=== PATIENT | male | born 1950 | race Caucasian/White ===

== ENCOUNTER 2019-08-14 00:58 | Day surgery (SDC) | payer MEDICARE, SELFPAY ==
[2019-08-11 13:01] VITALS: BMI 25.4
[2019-08-14 09:57] VITALS: BP 124/85; PULSE 86; RESP 20; TEMP 36.7; O2SAT 96
[2019-08-14] MEDS: LACTATED RINGERS 1,000 ML 150 ML IV CONT (10:12)
--- NOTE | 2019-08-14 10:19 | WPDANESEPPF ---
Anes - Initial Pre Proc Eval Procedure: Operation Date: 08/14/19 11:00 Proposed Procedures p Screening Colonoscopy - Igor Campbell MD Date/Time: 08/14/19 10:19 Surgeon: Igor Campbell MD Pre Op Diagnosis: pers hx colon CA Patient Data Age: 69 Gender: M Height: 6 ft 2 in Weight: 88.7 kg Last Vital Signs Temp 36.7 C 08/14/19 09:57 Pulse 86 08/14/19 09:57 Resp 20 08/14/19 09:57 BP 124/85 08/14/19 09:57 Pulse Ox 96 08/14/19 09:57 Allergies Allergy/AdvReac Type Severity Reaction Status Date / Time No Known Allergies Allergy Unverified 08/14/19 09:56 Home Medications Medication Instructions Recorded Confirmed Type atorvastatin 40 mg PO DAILY 08/11/19 08/14/19 History dabigatran etexilate [Pradaxa] 150 mg PO DAILY 08/11/19 08/14/19 History furosemide 40 mg PO DAILY 08/11/19 08/14/19 History lisinopril 10 mg PO DAILY 08/11/19 08/14/19 History metoprolol succinate 100 mg PO DAILY 08/11/19 08/14/19 History potassium chloride 20 meq PO DAILY 08/11/19 08/14/19 History spironolactone 25 mg PO DAILY 08/11/19 08/14/19 History Patient hx anesthesia problems: none Family hx anesthesia problems: none PMFSH Past Medical History Medical History (Updated 08/14/19 @ 10:19 by Fer Rodriguez MD) Colon cancer HTN (hypertension) Hyperlipidemia Anes - Eval Final PreProcedure Day of Procedure 08/14/19 10:19 Patient weight: normal Heart: regular rate and rhythm Lungs: clear to auscultation Airway: Mallampati scale class 1 and class II Neurological: alert and oriented Last oral intake: >/= 8 hours ASA classification: III Emergent: no Anesthetic plan: proceed Anesthesia type and monitoring: general GIVS Informed Consent: The patient's anesthetic plan and its attendant risks and benefits were discussed with the patient/family/POA. Questions were solicited and answers provided to the satisfaction of the patient/family/POA.
--- NOTE | 2019-08-14 10:34 | PM.HPGS ---
History of Present Illness History of Present Illness Consent: Risks, benefits, and alternatives have been discussed and questions answered. Patient agrees to proceed with procedure. Chief complaint: pers hx colon CA Narrative: Satya Rosa is a 69 year old male with history of colon cancer [facility] Past Medical History Medical History Colon cancer HTN (hypertension) Hyperlipidemia Meds Home Medications and Allergies Home Medications Medication Instructions Recorded Confirmed Type atorvastatin 40 mg PO DAILY 08/11/19 08/14/19 History dabigatran etexilate [Pradaxa] 150 mg PO DAILY 08/11/19 08/14/19 History furosemide 40 mg PO DAILY 08/11/19 08/14/19 History lisinopril 10 mg PO DAILY 08/11/19 08/14/19 History metoprolol succinate 100 mg PO DAILY 08/11/19 08/14/19 History potassium chloride 20 meq PO DAILY 08/11/19 08/14/19 History spironolactone 25 mg PO DAILY 08/11/19 08/14/19 History Allergies Allergy/AdvReac Type Severity Reaction Status Date / Time No Known Allergies Allergy Unverified 08/14/19 09:56 Vital Signs Vital Signs - 24 hr 08/14/19 09:57 Temperature 36.7 C Pulse Rate 86 Respiratory Rate 20 Blood Pressure 124/85 Pulse Oximetry 96 Exam Resp: Auscultation: clear to auscultation bilaterally Cardio: Rate: regular rate Rhythm: regular rhythm GI: GI Palp: Yes Soft to palpation and No Tenderness to palpation present (GI) Assessment and Plan Assessment and plan (1) History of colon cancer: Code(s): Z85.038 - Personal history of other malignant neoplasm of large intestine Status: Acute Assessment and Plan: Colonoscopy with possible biopsy or polypectomy or cautery or injection of substances.
[2019-08-14 11:18] VITALS: BP 94/55; PULSE 74; RESP 20; O2SAT 98
[2019-08-14 11:28] VITALS: BP 92/52; PULSE 76; RESP 20; O2SAT 99
[2019-08-14 11:38] VITALS: BP 98/54; PULSE 83; RESP 20; O2SAT 96
== END 2019-08-14 11:54 | disposition home or self-care (01) ==
PROVIDERS: PCP Internal Medicine; Visit Provider Internal Medicine Gastroenterology
PROC: 0DJD8ZZ Inspection of Lower Intestinal Tract, Via Natural or Artificial Opening Endoscopic (ICD-10-PCS; CPT 45378; principal; 2019-08-14 11:00)
DX: Z12.11 Encounter for screening for malignant neoplasm of colon (principal); Z85.038 Personal history of other malignant neoplasm of large intestine; Z98.0 Intestinal bypass and anastomosis status; Z90.49 Acquired absence of other specified parts of digestive tract; I10 Essential (primary) hypertension; E78.5 Hyperlipidemia, unspecified; Z79.01 Long term (current) use of anticoagulants
CPT/HCPCS: G0105; J2704; J7120

== ENCOUNTER 2020-10-06 09:59 | Outpatient (CLI) | payer MEDICARE, SELFPAY ==
--- NOTE | ~2020-10-06 | PE_ITS ---
EXAMINATION: PET skull to mid thigh DATE: 10/06/2020 11:46 INDICATION: Multiple lung nodules. TECHNIQUE: Blood glucose level was 102 mg/dL. 12.175 mCi of 18-fluorodeoxyglucose (18-FDG) was admini stered i.v. Low dose computed tomography (CT) images were acquired from the base of the brain to the proximal thighs for attenuation correction and anatomic localization. Positron emission tomography (P ET) images were acquired in the same distribution beginning 55 minutes after injection. Images includ ing fused PET/CT images were reconstructed in axial, coronal, and sagittal planes. Automated exposure control technique was employed. The dose-length product was 761.27mGy-cm. COMPARISON: None FINDINGS: Head/neck: There is symmetric increased activity in the oral cavity, palatine tonsils, laryngeal muscles and ocu lar muscles without CT correlate, likely physiologic. Left sphenoid sinus disease with diffuse mild F DG uptake associated with moderate mucosal thickening. No pathologically enlarged cervical lymphadeno daniel or suspicious foci of increased FDG uptake in the visualized head or neck. Chest: Mild to moderate emphysema. Calcified nodules at the right middle lobe and lingula and calcified left hilar and mediastinal lymph nodes consistent with old granulomatous disease. 6 mm noncalcified right lower lobe nodule without evident FDG uptake which is not diagnostic but also favors benign granulom atous disease. Mild discoid atelectasis in the right middle and left lower lobes. No pleural effusion . Cardiomegaly. Scattered atherosclerotic coronary artery calcific a cyst and aortic valve callus loc ation. No pericardial effusion. Thoracic aorta is normal in caliber. Asymmetric mild enlargement of a few left axillary lymph nodes relative to the contralateral right axillary lymph nodes which remain within normal limits in size, the largest measuring 9 mm in maximal short axis diameter. These demons trate minimal FDG uptake with maximal SUV of 1.7 which is less than the liver and on par with the blo od pool activity and are most likely reactive. No other pathologically enlarged or abnormally FDG elyse d thoracic lymphadenopathy. Mild bilateral gynecomastia. Abdomen/pelvis/proximal thighs: Physiologic renal accumulation and excretion of FDG activity in the kidneys, bladder and along portio ns of ureters. Prostatomegaly. Normal degree and heterogenous pattern of increased uptake throughout the liver without radiologic correlate or dominant FDG avid lesion. , But is not visualized and likel y surgically absent. Splenic calcifications consistent with old granulomatous disease. Mild fatty atr ophy of the pancreas. Bilateral adrenal glands are normal. Mild uptake scattered throughout the bowel s without radiologic correlate, also likely physiologic. No other abnormal foci of increased FDG upta ke or pathologically enlarged lymphadenopathy in the abdomen, pelvis or proximal thighs. Small to mod erate-sized fat-containing supraumbilical ventral hernia. Musculoskeletal: Severe cervical and lower lumbar spondylosis. Moderate spondylosis of the intervening thoracolumbar s pine. No suspicious lytic, blastic or FDG avid bone lesions. IMPRESSION: 1. No FDG uptake associated with a 6 mm right lower lobe nodule which favors benign old granulomatous disease. Given the underlying mild to moderate emphysema indicating an increased risk of lung cancer would consider 12 month follow-up low-dose noncontrast chest CT. 2. Asymmetric mild enlargement of a few still normal-sized left axillary lymph nodes with minimal inc reased FDG uptake which are most likely reactive. Patient reportedly has recently received the cul-de -sac seen in this may be related particularly if the injection was administered at the left upper ext remity. 3. Small to moderate-sized fat-containing supra umbilical ventral hernia.
[2020-10-06 10:28] LABS: Glucose Point of Care 102 (65-105)
== END 2020-10-06 10:00 | disposition home or self-care (01) ==
PROVIDERS: PCP Internal Medicine; Visit Provider Nurse Practitioner
DX: R91.8 Other nonspecific abnormal finding of lung field (principal); K42.9 Umbilical hernia without obstruction or gangrene
CPT/HCPCS: 78815; 82948; A9552

== ENCOUNTER 2022-01-11 06:57 | Outpatient (CLI) | payer MEDICARE, SELFPAY ==
--- NOTE | ~2022-01-11 | PE_ITS ---
EXAMINATION: PET skull to mid thigh DATE: 01/11/2022 09:28 INDICATION: Multiple nodules of lung TECHNIQUE: Blood glucose level was 92 mg/dL. 12.319 mCi of 18-fluorodeoxyglucose (18-FDG) was adminis tered i.v. Low dose computed tomography (CT) images were acquired from the base of the brain to the p roximal thighs for attenuation correction and anatomic localization. Positron emission tomography (PE T) images were acquired in the same distribution beginning 55 minutes after injection. Images includi ng fused PET/CT images were reconstructed in axial, coronal, and sagittal planes. Automated exposure control technique was employed. The dose-length product was 1002.32mGy-cm. COMPARISON: 10/06/2020 FINDINGS: Head/neck: There is symmetric increased activity in the oral and nasal cavities, parotid glands, submandibular glands, laryngeal muscles and ocular muscles without CT correlate, likely physiologic. No pathologic ally enlarged cervical lymphadenopathy or suspicious foci of increased FDG uptake in the visualized h ead or neck. Chest: Mild to moderate emphysema. Bilateral calcified pulmonary nodules along with calcified left hilar and mediastinal lymph nodes consistent with old granulomatous disease. Unchanged 6 mm noncalcified left lower lobe nodule without evident FDG uptake most likely additional granulomatous disease. No new or enlarging pulmonary nodules. No pneumonia, pulmonary edema or pleural effusion. Cardiomegaly. No jasbir cardial effusion. Thoracic aorta is normal in caliber. No interval change in mild asymmetry to the ax illary lymph nodes slightly larger but still normal-sized and without abnormal FDG uptake on the left which likely represent chronic reactive lymph nodes. No pathologically enlarged or abnormally FDG av id thoracic lymphadenopathy. Mild bilateral gynecomastia. Abdomen/pelvis/proximal thighs: Physiologic renal accumulation and excretion of FDG activity in the kidneys, bladder and along portio ns of ureters. Bilateral small low-attenuation renal cysts the larger on the left measuring 1.8 cm. P rostatomegaly. Normal degree and heterogenous pattern of increased uptake throughout the liver withou t radiologic correlate or dominant FDG avid lesion. The gallbladder and bilateral adrenal glands are normal. Small splenic calcifications consistent with old granulomatous disease. Mild fatty atrophy of the pancreas. Mild uptake scattered throughout the bowels without radiologic correlate, also likely physiologic. Small fat-containing umbilical hernia and small to moderate sized fat-containing supraum bilical ventral hernia. No other abnormal foci of increased FDG uptake or pathologically enlarged lym phadenopathy in the abdomen, pelvis or proximal thighs. Musculoskeletal: Severe cervical and lower lumbar spondylosis. Moderate spondylosis of the intervening thoracolumbar s pine. No suspicious lytic, blastic or FDG avid bone lesions. Likely physiologic diffuse uptake throug hout the much of the musculature of the bilateral upper extremities. IMPRESSION: 1. No interval change in size or evident FDG uptake associated with 6 mm left lower lobe nodule most consistent with old granulomatous disease. No other lesions suspicious for malignancy or metastatic d isease. Reviewed, dictated and finalized at location B. IMPRESSION: 1. No interval change in size or evident FDG uptake associated with 6 mm left l ower lobe nodule most consistent with old granulomatous disease. No other lesio ns suspicious for malignancy or metastatic disease.
[2022-01-11 07:42] LABS: Glucose Point of Care 92 mg/dl (65-105)
== END 2022-01-11 06:58 | disposition home or self-care (01) ==
PROVIDERS: PCP Internal Medicine; Visit Provider Nurse Practitioner
DX: R91.8 Other nonspecific abnormal finding of lung field (principal)
CPT/HCPCS: 78815; A9552